=== PATIENT | male | born 1985 | race Caucasian/White ===

== ENCOUNTER 2021-02-18 22:52 | Emergency (ER) | payer SELFPAY ==
[~2021-02-18] VITALS: Ht 170.2 cm; Wt 74.8 kg
[2021-02-18 23:00] VITALS: BP 131/78
[2021-02-18] MEDS ORDERED: ERYT3.5O9 EACHEYE (23:19)
== END 2021-02-19 00:10 | disposition home or self-care (01) ==
LOC: ER 23:00
DX: S01.03XA Puncture wound without foreign body of scalp, initial encounter (principal); S09.8XXA Other specified injuries of head, initial encounter; F17.200 Nicotine dependence, unspecified, uncomplicated; Z79.899 Other long term (current) drug therapy; Y04.8XXA Assault by other bodily force, initial encounter; Y93.89 Activity, other specified; Y92.89 Other specified places as the place of occurrence of the external cause; Y99.8 Other external cause status